=== PATIENT | female | born 1950 | race Caucasian/White ===

== ENCOUNTER 2021-04-18 21:03 | Emergency (ER) | payer MEDICARE, MEDICAID ==
[~2021-04-18] VITALS: Ht 162.6 cm; Wt 63.0 kg
[2021-04-19 02:00] LABS: HEMOGLOBIN 12.6 g/dl (12.0-16.0); IMMATURE GRANULOCYTES 0.8 % (0.0-5.0); MEAN CELL VOLUME 95.7 fL CALC (80.0-100.0); MEAN CORPUSCULAR HGB 31.7 pG CALC (26.0-32.0); MEAN CORPUSCULAR HGB CONC 33.2 g/dL CAL (32.0-36.0); NEUT# 3.49 thou/uL (2.00-7.15); RED BLOOD COUNT 3.97 mill/uL (4.20-5.60); RED CELL DISTRI WIDTH 12.7 % (11.5-15.5)
[2021-04-19 02:20] LABS: ALBUMIN 3.6 g/dL (3.2-5.0); ALKALINE PHOSPHATASE 61 u/l (38-126); ANION GAP 10 (6-22 (CALC)); BILIRUBIN, TOTAL 0.4 mg/dL (0.0-1.4); BUN 9 mg/dL (8-23); BUN/CREATININE RATIO 13 (12-20 (CALC)); CARBON DIOXIDE 28 mmol/l (22-30); CHLORIDE 102 mmol/l (95-108); CREATININE 0.7 mg/dL (0.5-1.0); GFR > 60 ML/MIN (>=60 (CALC)); GFR FOR AFR.AMER. > 60 ML/MIN (>=60 (CALC)); MAGNESIUM 2.1 mg/dL (1.6-2.3); SGOT/AST 19 u/l (9-36); SODIUM 136 mmol/l (137-146); TOTAL PROTEIN 6.2 g/dL (6.3-8.2)
[2021-04-19 02:29] LABS: MYOGLOBIN 34 ng/mL (0 - 62)
[2021-04-19 02:51] LABS: TSH, 3RD GENERATION 2.59 uIU/mL (0.47 - 4.68)
[2021-04-19] MEDS ORDERED: K-DUR/KLOR-CON20 MEQ PO (06:51)
[2021-04-19 07:04] LABS: URINE BILIRUBIN - DIPSTICK NEGATIVE (NEGATIVE); URINE BLOOD DIPSTICK TRACE-INTACT (NEGATIVE); URINE COLOR YELLOW; URINE GLUCOSE - DIPSTICK NEGATIVE (NEGATIVE); URINE KETONE NEGATIVE (NEGATIVE); URINE PROTEIN - DIPSTICK NEGATIVE (NEG-TRACE); URINE SPECIFIC GRAVITY <=1.005; URINE UROBILINOGEN - DIPSTICK 0.2 E.U./dL (0.2)
[2021-04-19 07:07] LABS: URINE LEUK ESTERASE MODERATE (NEGATIVE); URINE NITRITE - DIPSTICK NEGATIVE (Negative)
[2021-04-19 07:10] LABS: URINE SQUAMOUS EPITHELIAL CELL FEW EPI/hpf (0-FEW)
[2021-04-19 07:11] LABS: URINE BACTERIA FEW hpf; URINE MUCUS FEW hpf (NONE-FEW)
[2021-04-19 07:55] VITALS: BP 165/78
== END 2021-04-19 07:55 | disposition home or self-care (01) ==
LOC: ED 21:03
PROVIDERS: Family Medicine
DX: U07.1 COVID-19 (principal); E87.6 Hypokalemia; N39.0 Urinary tract infection, site not specified; G35 Multiple sclerosis